=== PATIENT | male | born 1960 | race African-American/Black ===

== ENCOUNTER → 2017-10-08 | Outpatient (CLI) | payer MEDICARE ==
[~2017-10-08] MED LIST: AMIO200 PO; ASPI-183 PO; ASPI325T PO; COUM5TAB PO; DILT1TAB22 PO; DILT300C PO; ENAL10TA7 PO; ENAL20TA PO; FAMO20TA2 PO; FURO1TAB60 PO; FURO1TAB93 PO; HYDR-3801 PO; HYDR100T2 PO; KCL20 PO; METO100T PO; METO1TAB43 PO; OXYC-360 PO; POTA-163 PO; VITA1000 PO
== END ==
LOC: HEDF 14:08
DX: I71.00 Dissection of unspecified site of aorta (principal)
CPT/HCPCS: A0431; A0436